=== PATIENT | male | born 1950 | race Two or more races ===

== ENCOUNTER 2024-12-12 11:48 | Emergency (ER) | payer OTHER ==
[~2024-12-12] VITALS: Ht 177.8 cm; Wt 95.7 kg
[2024-12-12] MEDS ORDERED: COZAAR50 MG PO (12:11)
[2024-12-12] MEDS ORDERED: UNISOM25 MG PO (12:11)
[2024-12-12] MEDS ORDERED: MECLIZINE HCL 25 MG TABLET PO ONE ×2 (13:30→13:40)
[2024-12-12 14:34] LABS: ALBUMIN 2.9 gm/dL (3.4-5.0); BILIRUBIN TOTAL 0.61 mg/dL (0.3-1.2); CALCIUM 8.5 mg/dL (8.5-10.1); GFR 7.85; GLOBULINA 3.2 G/DL (2.4-3.5); POTASSIUM 5.19 mEq/L (3.5-5.1); TOTAL PROTEIN 6.1 gm/dL (6.4-8.2)
[2024-12-12 14:36] LABS: HEMATOCRIT 37.6 % (39.0-48.0); HEMOGLOBIN 12.9 g/dL (13-16.00); MEAN CELL VOLUME 94.8 fL (80.0-100.00); MEAN CORPUSCULAR HEMOGLOBIN 32.5 pg (27.00-32.0); MEAN CORPUSCULAR HGB CONC 34.3 g/dl (32.0-36.0); PLATELET COUNT 244 K/uL (150-450); RED BLOOD COUNT 3.97 M/uL (4.00-6.00); RED CELL DISTRIBUTION WIDTH 13.6 % (11.5-14.5)
[2024-12-12 14:40] LABS: CREATININE SERUM 6.91 mg/dL (0.70-1.30)
[2024-12-12] MEDS ORDERED: DRAMAMINE LESS25 MG PO (16:37)
== END 2024-12-12 16:41 | disposition home or self-care (01) ==
LOC: ER 11:50
PROVIDERS: General Practice
DX: R42 Dizziness and giddiness (principal); E11.22 Type 2 diabetes mellitus with diabetic chronic kidney disease; N18.6 End stage renal disease; Z99.2 Dependence on renal dialysis; Z98.84 Bariatric surgery status

== ENCOUNTER 2025-09-05 09:33 | Emergency (ER) | payer OTHER ==
[~2025-09-05] VITALS: Ht 177.8 cm; Wt 84.8 kg
[~2025-09-05 09:33] MED LIST: COZAAR50 MG PO; DRAMAMINE LESS25 MG PO; UNISOM25 MG PO
[2025-09-05] MEDS ORDERED: LOSARTAN POTASS50 MG PO (09:55)
[2025-09-05] MEDS ORDERED: SEROQUEL25 MG PO (09:55)
[2025-09-05] MEDS ORDERED: DOPamine HCL 400MG/D5w 250ML PLAST..BAG IV ONE (10:19)
[2025-09-05 10:40] LABS: BASO % 1.0 % (0.1-1.2); EOS # 0.09 (0.04-0.54); EOS % 1.0 % (0.7-7.0); LYMPH # 1.69 (1.18-3.74); LYMPH % 18.6 % (19.3-53.1); MEAN PLATELET VOLUME 9.40 fl (9.4-12.4); MONO # 0.96 (0.24-0.82); MONO % 10.6 % (4.7-12.5); NEUT # 6.17 (1.56-6.13); NEUT % 68.0 % (34.0-71.1); RED CELL DISTRIBUTION WIDTH 13.1 % (11.6-14.4)
[2025-09-05] MEDS ORDERED: DOPamine HCL 400MG/D5w 250ML PLAST..BAG IV STA (10:40)
[2025-09-05 11:06] LABS: ALT/SGPT 16.0 U/L (12-78); AST/SGOT 8.0 U/L (15-37); BILIRUBIN TOTAL 0.51 mg/dL (0.3-1.2); BUN CREA RATIO 5.0 (7.0-25.0); GFR 9.98; GLOBULINA 3.9 G/DL (2.4-3.5)
[2025-09-05 11:09] LABS: OSMOLALITY SERUM 289.0 MOSM/KG (275-295)
[2025-09-05 11:12] LABS: CREATININE SERUM 5.6 mg/dL (0.70-1.30); GLUCOSE FASTING 250.0 mg/dL (65-100)
[2025-09-05 11:13] LABS: INR 1.01
== END 2025-09-05 14:49 | disposition designated cancer center or children's hospital (05) ==
LOC: ER 09:33
PROVIDERS: General Practice
DX: N18.5 Chronic kidney disease, stage 5 (principal); Z99.2 Dependence on renal dialysis; I49.5 Sick sinus syndrome; R07.89 Other chest pain; R42 Dizziness and giddiness
CPT/HCPCS: 93041; 93288; 96365; 99285; J1265